=== PATIENT | male | born 1945 | race Caucasian/White ===

== ENCOUNTER 2019-10-08 08:27 | Inpatient (IN) | payer MEDICARE ==
[~2019-10-08] VITALS: Ht 180.3 cm; Wt 113.4 kg
--- NOTE | 2019-10-08 08:35 | NUR ---
BIB [facility] FOR C/O MECHANICAL FALL. PATIENT IS AWAKE AND ALERT. VITAL SIGNS STABLE.
[2019-10-08] MEDS ORDERED: IV NORMAL SALINE 1000 ML BAG IV ONE (09:30)
[2019-10-08 10:00] LABS: BASOPHILS % (AUTO) 0.6 % (0.0-2.0); EOSINOPHILS % (AUTO) 0.4 % (0.0-7.0); HEMATOCRIT 36.6 % (36.7-47.1); HEMOGLOBIN 11.9 g/dL (12.5-16.3); LYMPHOCYTES # (AUTO) 0.8 K/uL (20.0-40.0); LYMPHOCYTES % (AUTO) 11.6 % (20.5-51.5); MEAN CORPUSCULAR HEMOGLOBIN 26.3 uug (23.8-33.4); MEAN CORPUSCULAR HGB CONC 32 g/dL (32.5-36.3); MONOCYTES # (AUTO) 0.5 K/uL (2.0-10.0); NEUTROPHILS # (AUTO) 5.3 K/uL (1.8-8.9); NEUTROPHILS % (AUTO) 79.4 % (38.5-71.5); PLATELET COUNT (AUTO) 228 K/uL (152-348); RED BLOOD CELL COUNT(AUTO) 4.52 MIL/uL (4.06-5.63); WHITE BLOOD COUNT (AUTO) 6.7 K/uL (3.6-10.2)
[2019-10-08 10:04] LABS: CREATININE 0.9 mg/dL (0.6-1.3); POTASSIUM 3.9 mmol/L (3.5-5.1)
[2019-10-08 10:10] LABS: BILIRUBIN,DIRECT 0.1 mg/dL (0.0-0.2); BILIRUBIN,TOTAL 0.8 mg/dL (0.2-1.0); TOTAL PROTEIN, SERUM 7.7 g/dL (6.4-8.2)
--- NOTE | 2019-10-08 10:14 | NUR ---
DR PEOPLES AT BEDSIDE FOR EVAL... PATIENT IS AWAKE AND ALERT WITH NO NEW COMPLAINTS.
[2019-10-08] MEDS ORDERED: OXYCODONE/APAP 5-325 MG TABLET PO PRN (10:15)
[2019-10-08] MEDS ORDERED: Z GUARD REMEDY PASTE 57 GM TUBE TOP PRN (10:15)
[2019-10-08] MEDS ORDERED: HYDROCODONE/APAP 5-325MG TABLET PO PRN (10:15)
[2019-10-08] MEDS ORDERED: ONDANSETRON 4 MG/2 ML VIAL IV PRN (10:15)
[2019-10-08] MEDS ORDERED: MAGNESIUM HYDROXIDE 30 ML LIQUID UDC PO PRN (10:15)
[2019-10-08] MEDS ORDERED: ACETAMINOPHEN 325 MG TABLET PO PRN (10:15)
[2019-10-08] MEDS ORDERED: LORAZEPAM 1 MG TABLET PO PRN (10:15)
[2019-10-08] MEDS ORDERED: [UNRECOGNIZED DRUG - OTHER] PO SCH (10:15)
--- NOTE | 2019-10-08 10:32 | NUR ---
PATIENT AWARE OF PENDING ADMISSION TO HOSPITAL. REPORT GIVEN TO FELIPE HATFIELD ON TELE FLOOR
[2019-10-08 11:58] VITALS: BP 140/80
[2019-10-08] MEDS ORDERED: DEXAMETHASONE 4 MG TABLET PO SCH (12:00)
--- NOTE | 2019-10-08 12:00 | NUR ---
Admitted patient from [facility] by ER s/p mechanical fall. Admitting diagnosis is Brain lesion. Awake alert and answers questions appropriately. Initial admission assessment initiated. Spoke to son, Mik, and plan of care was discussed. Dr. Kwon notified of admission with orders. Continue Tele status. Controlled a-fib on monitor. Will continue to monitor patient.
[2019-10-08] MEDS ORDERED: ERGOCALCIFEROL 50,000 UNIT CAPSULE PO SCH (12:15)
[2019-10-08] MEDS: DEXAMETHASONE SOD PHOSPHATE 4 MG INJ IV SCH ×2 (12:16→17:15)
[2019-10-08] MEDS: DOCUSATE SODIUM 100 MG CAPSULE PO SCH ×2 (12:16→17:15)
[2019-10-08] MEDS: IV NS 1000 ML 1,000 ML IV PRN ×2 (12:21→17:17)
[2019-10-08] MEDS: PAZOPANIB PO SCH (13:11)
[2019-10-08 15:31] VITALS: BP 141/82
--- NOTE | 2019-10-08 16:44 | NUR ---
Seen by Dr. Campbell for Oncology consult and spoke to son regarding plan. Patient for CT scan chest without contrast and MRI brain without contrast.
[2019-10-08] MEDS ORDERED: DEXAMETHASONE SOD PHOSPHATE 4 MG INJ IV SCH (16:45)
--- NOTE | 2019-10-08 16:57 | NUR ---
Attempted to retrieve PET scan results on 10/03/[address] Deyvi Vilchis. [facility] office is closed and is open from Thursday-Thursday 8:00am-5:00pm. Will follow up.
[2019-10-08 20:57] VITALS: BP 125/70
[2019-10-08] MEDS: MIRTAZAPINE 15 MG TABLET PO SCH (21:21)
[2019-10-08] MEDS: MORPHINE SULFATE SR 15 MG TABLET.SA PO SCH (21:21)
[2019-10-09] VITALS: BP 140/88
[2019-10-09] MEDS: DEXAMETHASONE SOD PHOSPHATE 4 MG INJ IV SCH ×5 (00:24→23:06)
[2019-10-09 00:41] LABS: *BILIRUBIN,URIN NEGATIVE (NEGATIVE); *BLOOD, URINE NEGATIVE (NEGATIVE); *CLARITY,URINE CLEAR (CLEAR); *COLOR,URINE YELLOW (YELLOW); *KETONES,URINE NEGATIVE (NEGATIVE); *UROBILINOGEN,URINE 0.2 E.U./dl (NORMAL); LEUKOCYTE ESTERASE ,URINE NEGATIVE (NEGATIVE); NITRITE, URINE NEGATIVE (NEGATIVE); UGLUCOSE NEGATIVE (NEGATIVE)
[2019-10-09 04:00] VITALS: BP 145/79
[2019-10-09 05:49] LABS: HEMATOCRIT 35.1 % (36.7-47.1); HEMOGLOBIN 11.4 g/dL (12.5-16.3); LYMPHOCYTES # (AUTO) 0.4 K/uL (20.0-40.0); LYMPHOCYTES % (AUTO) 6.9 % (20.5-51.5); MEAN CORPUSCULAR HEMOGLOBIN 26.6 uug (23.8-33.4); MEAN CORPUSCULAR HGB CONC 33 g/dL (32.5-36.3); MEAN CORPUSCULAR VOLUME 81.7 fL (73.0-96.2); MONOCYTES # (AUTO) 0.1 K/uL (2.0-10.0); MONOCYTES % (AUTO) 1.8 % (0.0-11.0); NEUTROPHILS # (AUTO) 5.7 K/uL (1.8-8.9); NEUTROPHILS % (AUTO) 91.3 % (38.5-71.5); PLATELET COUNT (AUTO) 239 K/uL (152-348); WHITE BLOOD COUNT (AUTO) 6.3 K/uL (3.6-10.2)
[2019-10-09 06:05] LABS: THYROID STIMULATING HORMONE 0.75 mIU/mL (0.358-3.740)
[2019-10-09] MEDS: PAZOPANIB PO SCH (06:16)
[2019-10-09 06:27] LABS: CREATININE 0.9 mg/dL (0.6-1.3); MAGNESIUM 2.1 mg/dL (1.8-2.4); PHOSPHOROUS 3.2 mg/dL (2.5-4.9); POTASSIUM 4.2 mmol/L (3.5-5.1)
--- NOTE | 2019-10-09 07:10 | NUR ---
RECEIVED PATIENT IN BED ASLEEP, NO ACUTE DISTRESS NOTED. BED IN LOWEST POSITION, SIDE RAILS UP X2, CALL LIGHT WITHIN REACH WILL CONTINUE TO MONITOR.
[2019-10-09] MEDS: POTASSIUM CHLORIDE 8 MEQ TAB.PRT.SR PO SCH (08:27)
[2019-10-09] MEDS: DOCUSATE SODIUM 100 MG CAPSULE PO SCH ×3 (08:27→17:07)
[2019-10-09] MEDS: MORPHINE SULFATE SR 15 MG TABLET.SA PO SCH ×2 (08:28→19:53)
[2019-10-09] MEDS: METOPROLOL SUCCINATE XL 50 MG TAB.SR.24H PO SCH (08:31)
[2019-10-09] MEDS ORDERED: Medication Not On Formulary EA (Potassium Chloride (Klor-Con 8) 8 MEQ) PO SCH (09:00)
[2019-10-09] MEDS ORDERED: Medication Not On Formulary EA (Metoprolol Succinate (Toprol Xl) 1 TAB) PO SCH (09:00)
[2019-10-09] MEDS ORDERED: [UNRECOGNIZED DRUG - OTHER] PO SCH (09:00)
[2019-10-09] MEDS: IV NS 1000 ML 1,000 ML IV PRN ×2 (09:28→22:33)
[2019-10-09 11:43] VITALS: BP 120/70
[2019-10-09 15:30] VITALS: BP 132/71
--- NOTE | 2019-10-09 18:04 | NUR ---
PATIENT RESTED INTERMITTENTLY THROUGHOUT DAY. NO ACUTE DISTRESS THROUGHOUT DAY, PATIENT DENIES PAIN AND DISCOMFORT. PATIENT GET TIMES OF CONFUSION AND FORGETFULNESS. WILL ENDORSE TO ONCOMING NURSE
--- NOTE | 2019-10-09 19:30 | NUR ---
RECEIVED PT AWAKE, ALERT AND ORIENTEDX2. PT IN NO ACUTE DISTRESS. PT NEEDS REDIRECTION. IV INTACT. PT ON NASAL CANNULA. SAFETY AND COMFORT PROVIDED. WILL CONTINUE TO MONITOR.
[2019-10-09] MEDS: MIRTAZAPINE 15 MG TABLET PO SCH (19:54)
[2019-10-09 20:45] VITALS: BP 118/66
[2019-10-10] MEDS: DEXAMETHASONE SOD PHOSPHATE 4 MG INJ IV SCH ×4 (05:28→23:12)
--- NOTE | 2019-10-10 05:52 | NUR ---
PT SLEPT INTERMITTENTLY. PT IN NO ACUTE DISTRESS. IV INTACT. PRESCRIBED MEDICATION GIVEN AND PT TOLERATED IT WELL. SAFETY AND COMFORT PROVIDED. ALL NEEDS ARE MET WILL ENDORSE TO INCOMING NURSE FOR CONTINUITY OF CARE.
[2019-10-10] MEDS: PAZOPANIB PO SCH (06:05)
[2019-10-10 06:39] VITALS: BP 138/88
[2019-10-10 07:02] LABS: BASOPHILS % (AUTO) 0.1 % (0.0-2.0); HEMATOCRIT 37.3 % (36.7-47.1); HEMOGLOBIN 11.7 g/dL (12.5-16.3); LYMPHOCYTES # (AUTO) 0.8 K/uL (20.0-40.0); MEAN CORPUSCULAR HEMOGLOBIN 26.1 uug (23.8-33.4); MEAN CORPUSCULAR HGB CONC 31 g/dL (32.5-36.3); MEAN CORPUSCULAR VOLUME 83.3 fL (73.0-96.2); MONOCYTES # (AUTO) 0.4 K/uL (2.0-10.0); MONOCYTES % (AUTO) 3.3 % (0.0-11.0); NEUTROPHILS # (AUTO) 11.6 K/uL (1.8-8.9); NEUTROPHILS % (AUTO) 90.6 % (38.5-71.5); PLATELET COUNT (AUTO) 285 K/uL (152-348); RED BLOOD CELL COUNT(AUTO) 4.47 MIL/uL (4.06-5.63)
[2019-10-10 07:08] LABS: WHITE BLOOD COUNT (AUTO) 12.8 K/uL (3.6-10.2)
[2019-10-10 07:14] LABS: POTASSIUM 3.9 mmol/L (3.5-5.1)
--- NOTE | 2019-10-10 08:04 | NUR ---
Received report from TORRIE Glasgow, patient has just been picked up by ambulance for MRI.
[2019-10-10] MEDS: DOCUSATE SODIUM 100 MG CAPSULE PO SCH ×3 (10:23→17:14)
[2019-10-10] MEDS: POTASSIUM CHLORIDE 8 MEQ TAB.PRT.SR PO SCH (10:23)
[2019-10-10] MEDS: MORPHINE SULFATE SR 15 MG TABLET.SA PO SCH ×2 (10:24→20:17)
[2019-10-10] MEDS: METOPROLOL SUCCINATE XL 50 MG TAB.SR.24H PO SCH (10:26)
--- NOTE | 2019-10-10 10:31 | NUR ---
Patient back from MRI. Patient is alert, not in any acute distress. He denies any pain or discomfort at this time. Assisted with his needs promptly. Call light and frequently used items placed within reach.
[2019-10-10 11:31] VITALS: BP 122/75
[2019-10-10 15:39] VITALS: BP 126/67
[2019-10-10] MEDS ORDERED: GADOTERIDOL 279.3 MG/ML, 10 ML VIAL ONE (17:24)
--- NOTE | 2019-10-10 19:05 | NUR ---
Patient remains alert, with noted forgetfulness and no noted distress during the shift. No complain of any pain or discomfort, son Mik at bedside. Endorsed accordingly to cage shift manager nurse.
--- NOTE | 2019-10-10 19:30 | NUR ---
RECEIVED PT AWAKE, ALERT AND ORIENTEDX3. PT IN NO ACUTE DISTRESS. IV INTACT. SAFETY AND COMFORT PROVIDED. WILL CONTINUE TO MONITOR.
[2019-10-10] MEDS: IV NS 1000 ML 1,000 ML IV PRN (19:52)
[2019-10-10 20:02] VITALS: BP 126/72
[2019-10-10] MEDS: MIRTAZAPINE 15 MG TABLET PO SCH (20:18)
[2019-10-10] MEDS: LEVETIRACETAM 500 MG/5 ML LIQUID UDC NG SCH (20:18)
--- NOTE | 2019-10-10 21:15 | NUR ---
DR TOBIAS SAW THE PT AND EXPLAINED TO PT THE PT THE PLAN OF CARE. DR Susana TOBIAS TALK WITH THE PATIENTS SON OVER THE PHONE. PT IN NO ACUTE DISTRESS. WILL CONTINUE TO MONITOR.
[2019-10-11 05:31] VITALS: BP 137/81
[2019-10-11] MEDS: DEXAMETHASONE SOD PHOSPHATE 4 MG INJ IV SCH ×4 (05:35→23:20)
--- NOTE | 2019-10-11 05:54 | NUR ---
PT SLEPT INTERMITTENTLY. PT IN NO ACUTE DISTRESS. IV INTACT.PRESCRIBED MEDICATION GIVEN AND PT TOLERATED IT WELL. SAFETY AND COMFORT PROVIDED. WILL ENDORSE TO INCOMING NURSE FOR CONTINUITY OF CARE.
[2019-10-11] MEDS: PAZOPANIB PO SCH (06:16)
--- NOTE | 2019-10-11 07:30 | NUR ---
Received patient awake, alert, but sometimes forgetful. Patient shows no signs or symptoms of distress at this time. Patient resting comfortably. Bed set to lowest position. Call light within reach. Will continue to monitor patient.
[2019-10-11] MEDS: DOCUSATE SODIUM 100 MG CAPSULE PO SCH ×3 (08:42→17:15)
[2019-10-11] MEDS: LEVETIRACETAM 500 MG/5 ML LIQUID UDC NG SCH ×2 (08:42→21:33)
[2019-10-11] MEDS: MORPHINE SULFATE SR 15 MG TABLET.SA PO SCH ×2 (08:43→21:33)
[2019-10-11] MEDS: METOPROLOL SUCCINATE XL 50 MG TAB.SR.24H PO SCH (08:46)
[2019-10-11] MEDS: POTASSIUM CHLORIDE 8 MEQ TAB.PRT.SR PO SCH (08:46)
[2019-10-11 10:16] LABS: BASOPHILS % (AUTO) 0.2 % (0.0-2.0); HEMATOCRIT 37.2 % (36.7-47.1); HEMOGLOBIN 11.6 g/dL (12.5-16.3); LYMPHOCYTES # (AUTO) 0.7 K/uL (20.0-40.0); LYMPHOCYTES % (AUTO) 5.9 % (20.5-51.5); MEAN CORPUSCULAR HEMOGLOBIN 25.9 uug (23.8-33.4); MEAN CORPUSCULAR HGB CONC 31 g/dL (32.5-36.3); MEAN CORPUSCULAR VOLUME 83.2 fL (73.0-96.2); MONOCYTES # (AUTO) 0.5 K/uL (2.0-10.0); MONOCYTES % (AUTO) 4.1 % (0.0-11.0); NEUTROPHILS # (AUTO) 11.4 K/uL (1.8-8.9); NEUTROPHILS % (AUTO) 89.8 % (38.5-71.5); PLATELET COUNT (AUTO) 245 K/uL (152-348); RED BLOOD CELL COUNT(AUTO) 4.47 MIL/uL (4.06-5.63); WHITE BLOOD COUNT (AUTO) 12.7 K/uL (3.6-10.2)
[2019-10-11 10:32] LABS: BILIRUBIN,TOTAL 0.4 mg/dL (0.2-1.0); CREATININE 0.9 mg/dL (0.6-1.3); POTASSIUM 4.1 mmol/L (3.5-5.1); TOTAL PROTEIN, SERUM 6.8 g/dL (6.4-8.2)
[2019-10-11 11:30] VITALS: BP 138/68
--- NOTE | 2019-10-11 11:38 | NUR ---
Son, Mik, at bedside wanting to know plan of care. Hospitalist, Cristiana, informed and is talking to patient's son. Chest x-ray ordered. Poss. discharge today but patient will not make it to outpatient appointment. Will continue to monitor and update family.
[2019-10-11] MEDS ORDERED: FUROSEMIDE 20 MG/2 ML VIAL IV ONE (13:45)
[2019-10-11 15:34] VITALS: BP 123/74
--- NOTE | 2019-10-11 19:30 | NUR ---
Received patient awake and alert in bed, patient is A/Ox2, forgetful but easily reoriented. No signs of acute distress noted. No complaints of pain or SOB. Vitals WNL. Heplock on the right wrist is intact and patent. Patient ambulates with assistance. Safety measures initiated. Bed is low and locked, call light within reach. Will continue to monitor.
[2019-10-11 20:16] VITALS: BP 134/67
[2019-10-11] MEDS: MIRTAZAPINE 15 MG TABLET PO SCH (21:33)
[2019-10-12 05:17] VITALS: BP 136/75
[2019-10-12] MEDS: PAZOPANIB PO SCH (06:17)
[2019-10-12] MEDS: DEXAMETHASONE SOD PHOSPHATE 4 MG INJ IV SCH (06:17)
[2019-10-12] MEDS: METOPROLOL SUCCINATE XL 50 MG TAB.SR.24H PO SCH (08:10)
[2019-10-12] MEDS: POTASSIUM CHLORIDE 8 MEQ TAB.PRT.SR PO SCH (08:10)
[2019-10-12] MEDS: LEVETIRACETAM 500 MG/5 ML LIQUID UDC NG SCH (08:10)
[2019-10-12] MEDS: MORPHINE SULFATE SR 15 MG TABLET.SA PO SCH (08:10)
[2019-10-12] MEDS: DOCUSATE SODIUM 100 MG CAPSULE PO SCH ×2 (08:10→12:26)
[2019-10-12 10:57] LABS: BASOPHILS % (AUTO) 0.1 % (0.0-2.0); HEMATOCRIT 38.1 % (36.7-47.1); HEMOGLOBIN 12.2 g/dL (12.5-16.3); LYMPHOCYTES # (AUTO) 0.9 K/uL (20.0-40.0); LYMPHOCYTES % (AUTO) 6.2 % (20.5-51.5); MEAN CORPUSCULAR HEMOGLOBIN 26.4 uug (23.8-33.4); MEAN CORPUSCULAR HGB CONC 32 g/dL (32.5-36.3); MEAN CORPUSCULAR VOLUME 82.6 fL (73.0-96.2); MONOCYTES % (AUTO) 6.8 % (0.0-11.0); NEUTROPHILS # (AUTO) 13.3 K/uL (1.8-8.9); NEUTROPHILS % (AUTO) 86.9 % (38.5-71.5); PLATELET COUNT (AUTO) 293 K/uL (152-348); RED BLOOD CELL COUNT(AUTO) 4.61 MIL/uL (4.06-5.63); WHITE BLOOD COUNT (AUTO) 15.3 K/uL (3.6-10.2)
[2019-10-12 11:01] LABS: BILIRUBIN,TOTAL 0.7 mg/dL (0.2-1.0); CREATININE 0.9 mg/dL (0.6-1.3); TOTAL PROTEIN, SERUM 7.1 g/dL (6.4-8.2)
[2019-10-12 11:32] VITALS: BP 129/66
[2019-10-12] MEDS ORDERED: LEVOFLOXACIN 500 MG TABLET PO SCH (12:30)
--- NOTE | 2019-10-12 12:40 | NUR ---
IV site is leaking. New order to give dexamathasone PO. Will not start new iV since pt. is getting discharged.
[2019-10-12] MEDS ORDERED: DEXAMETHASONE 4 MG TABLET PO ONE (12:45)
--- NOTE | 2019-10-12 13:58 | NUR ---
PT. WHEELED DOWNSTAIRS BY [employer] PLANNING ENGINEER AND LENS MARKER. IV REMOVED. ID BAND REMOVED. BELONGINGS LIST COMPLETED. ALL BELONGINGS WITH PT. PT. STABLE. PT SIGNED DISCHARGE PAPERWORK. PT. D/C WITH TOMMY BURNETT. WELFARE INTERVIEWER BEBE AND HOSPITALIST AWARE.
== END 2019-10-12 14:34 | DRG 54 ==
LOC: ER 08:27 → TELE3 11:21 → MEDSURG3 10-09 18:45
PROVIDERS: ADMIT Internal Medicine; ATTEND Internal Medicine
DX: C79.31 Secondary malignant neoplasm of brain (principal); G93.6 Cerebral edema; N17.0 Acute kidney failure with tubular necrosis; J18.9 Pneumonia, unspecified organism; C78.00 Secondary malignant neoplasm of unspecified lung; E22.2 Syndrome of inappropriate secretion of antidiuretic hormone; C34.90 Malignant neoplasm of unspecified part of unspecified bronchus or lung; C64.9 Malignant neoplasm of unspecified kidney, except renal pelvis; I48.91 Unspecified atrial fibrillation; F32.9 Major depressive disorder, single episode, unspecified; F41.9 Anxiety disorder, unspecified; Z79.01 Long term (current) use of anticoagulants; R32 Unspecified urinary incontinence; I10 Essential (primary) hypertension; S09.90XA Unspecified injury of head, initial encounter; W18.30XA Fall on same level, unspecified, initial encounter; Y92.099 Unspecified place in other non-institutional residence as the place of occurrence of the external cause; D64.9 Anemia, unspecified
CPT/HCPCS: 36415; 70030-TC; 70450; 70553; 71045; 71250; 72192; 83550; 83690; 83735; 84100; 84443; 85025; 85730; 87400; 93005; A4663; A9579; G0378; J1100; J1940; J7030; J8540